=== PATIENT | female | born 1995 | race African-American/Black ===

== ENCOUNTER 2023-01-08 18:32 | Emergency (ER) | payer MEDICAID ==
[~2023-01-08] VITALS: Ht 172.7 cm; Wt 79.0 kg
[2023-01-08 19:45] VITALS: BP 117/50
[2023-01-08] MEDS ORDERED: DEXT15DR5 EACHEYE (22:45)
== END 2023-01-09 01:31 | disposition home or self-care (01) ==
LOC: ER 18:32
DX: H10.13 Acute atopic conjunctivitis, bilateral (principal)
CPT/HCPCS: 81025; 99282